=== PATIENT | female | born 1975 | race Caucasian/White ===

== ENCOUNTER → 2017-05-22 14:14 | Outpatient (CLI) | payer OTHER, SELFPAY ==
[2017-05-22 17:25] LABS: Blood Urea Nitrogen 8 mg/dL (7-18); Creatinine,Serum 0.79 mg/dL (0.55-1.02); Estimated Glomerular Filt Rate 79 ml/min (>60); GFR (African American) 96 ML/MIN (>60)
== END ==
PROVIDERS: PCP Family Medicine; Visit Provider Family Medicine
DX: R10.84 Generalized abdominal pain (principal)
CPT/HCPCS: 36415; 82565; 84520

== ENCOUNTER → 2017-05-23 08:50 | Outpatient (CLI) | payer OTHER, SELFPAY ==
--- NOTE | 2017-05-23 08:56 | CT_ITS ---
CT abdomen pelvis w con CLINICAL INDICATION: Abdominal pain with diarrhea, possible diverticulitis ITS.REASON: ABD PAIN,DIARRHEA ORDERING PHYSICIAN: Janet Dai PATIENT AGE: 41 years COMPARISON: 05/26/15 TECHNIQUE: Axial images obtained with sagittal and coronal reformats. PROCEDURE: Oral Contrast: Redicat IV Contrast: 75 mL's of Isovue-370. FINDINGS: No acute finding in the lung bases. Prior cholecystectomy. No focal liver lesion. No biliary dilatation. The spleen, adrenal glands, and pancreas, kidneys, ureters, and urinary bladder have an unremarkable appearance. No obstructing renal or ureteral calculi. No intestinal obstruction or free air. No evidence of appendicitis. There has been a prior hysterectomy. There are scattered diverticula within the descending and sigmoid colon. There is mild thickening of the mid aspect of the sigmoid colon. This is nonspecific. No focal inflamed diverticula are apparent. There is no evidence of abscess or perforation. No abnormal fluid collections are evident within the pelvis. There is a small left ovarian cyst measuring 1.3 cm No acute bony anomalies. IMPRESSION: There is mild thickening of the sigmoid colon within central aspect of the pelvis. This is nonspecific and may be related to nondistention. Mild colitis is also a consideration. The imaging findings are not suggestive of diverticulitis. No focal inflamed diverticula are evident. No abscess or perforation and
--- NOTE | 2017-05-23 09:19 | HMH.ITSHM ---
VICTOZA METRONIDAZOLE CIPRO FARANTONIOGA VIT D 3 METOCLOPRAMIDE OMEPRAZOLE ATORVASTATIN BUSPIRONE CITALOPRAM BUPROPION XL
== END ==
PROVIDERS: PCP Family Medicine; Visit Provider Nurse Practitioner
DX: R19.7 Diarrhea, unspecified (principal); R10.84 Generalized abdominal pain
CPT/HCPCS: 74177; Q9967

== ENCOUNTER → 2017-06-24 12:51 | Outpatient (CLI) | payer OTHER, SELFPAY ==
--- NOTE | 2017-06-24 | US_ITS ---
MM Dig mamm BI DX w/CAD, US breast RT complete Ultrasound left breast complete COMPARISON: 12/23/2016, 11 2 16 INDICATION: Follow-up abnormal mammogram ORDERING PHYSICIAN: Velasquez Arias MD PATIENT AGE: 42 years TECHNIQUE: Standard images performed with bilateral spot compression views and bilateral breast ultrasound FINDINGS: Right mammogram: Average fibroglandular tissue. 5 mm nodular opacity lateral aspect of right breast at 9:00. 5 mm Central opacity right breast appear to compress out as fibroglandular tissue. These areas are probably benign likely representing overlapping fibroglandular tissue as no sonographic adenopathy is were detected.. Right breast ultrasound: No mass or cyst evident. Left mammogram: Scattered nodular opacities are present involving the left breast similar to the previous exam. No malignant appearing masses are apparent. Left breast ultrasound: 5 mm cyst 12:00, 6 mm cyst at 3:00, 8 mm complex cyst at 7:00 near the nipple. This has developed since the previous exam. No suspicious solid lesions evident. IMPRESSION: Bilateral nodular opacities of both breasts probably related to fibrocystic changes BI-RADS Category: 3 Benign Finding Short Term Follow-up RECOMMENDED FOLLOW-UP: 6M - 6 MONTH FOLLOW-UP Recommend bilateral 6 month mammographic and sonographic follow-up (A letter has been sent to the patient regarding results of the study.)
== END ==
PROVIDERS: PCP Family Medicine; Visit Provider Family Medicine
DX: Z12.31 Encounter for screening mammogram for malignant neoplasm of breast (principal)
CPT/HCPCS: 76641; 77066

== ENCOUNTER → 2018-07-16 09:03 | Outpatient (CLI) | payer OTHER, SELFPAY ==
[2018-07-16 09:08] LABS: Adenovirus F 40/41, stool Not Detected (NotDetected); Astrovirus Not Detected (NotDetected); Campylobacter Not Detected (NotDetected); Clostridium Difficile A/B, PCR Not Detected (NotDetected); Cryptosporidium Not Detected (NotDetected); Cyclospora Cayetanesis Not Detected (NotDetected); Entamoeba histolytica Not Detected (NotDetected); Enteroaggregative E coli Not Detected (NotDetected); Enteropathogenic E coli Not Detected (NotDetected); Enterotoxigenic E coli Not Detected (NotDetected); Giardia lamblia Not Detected (NotDetected); Norovirus Not Detected (NotDetected); Plesimonas Shigalloides, PCR Not Detected (NotDetected); Rotavirus A Not Detected (NotDetected); Salmonella, PCR Not Detected (NotDetected); Sapovirus Not Detected (NotDetected); Shiga-like toxin E coli Not Detected (NotDetected); Shigella Enterovasive E coli Not Detected (NotDetected); Vibrio Cholerae Not Detected (NotDetected); Vibrio, PCR Not Detected (NotDetected); Yersinia Entercolitica, PCR Not Detected (NotDetected)
== END ==
PROVIDERS: Visit Provider Family Medicine
DX: R19.7 Diarrhea, unspecified (principal)
CPT/HCPCS: 87507

== ENCOUNTER → 2018-08-07 10:21 | Outpatient (CLI) | payer OTHER, SELFPAY ==
--- NOTE | 2018-08-07 10:25 | MM_ITS ---
MM Dig screening mamm BI w/CAD ORDERING PHYSICIAN : Velasquez Arias MD PATIENT AGE: 43 years GENDER: Female COMPARISON: Bilateral mammogram February 2016, June 2017 ultrasound both breast 06/24/2017 Ultrasound left breast 12/23/2016 & INDICATION: Routine: SCREENING . No hormones no new complaints Family history. Mother breast cancer age 61 postmenopausal. Also maternal and paternal grandmother with breast cancer TECHNIQUE: Standard CC and MLO images were obtained. R2 CAD reviewed. FINDINGS: . Scattered densities throughout both breasts. Cyst and fibrocystic disease have been established on previous ultrasound but there seems to be slight progression of probable scattered small cystic elements particularly throughout right breast.. But warrants ultrasound follow-up. The breasts are of moderate density overall, mammography slightly limited breast this character with scattered nodules-. Ultrasound be useful to compliment mammography in this setting. RIGHT BREAST: Several small nodular densities less than 1 cm throughout the right breast are likely more evident than previous studies. Most likely reflect some progressive cysts but would recommend ultrasound to further evaluate and correlate. . Also suggest spot views when patient returns, to excludeCC, MLO upper outer quadrant; along with a full 90 degree view of right breast LEFT BREAST: Majority the nodular densities at the left breast are stable. Specifically note there are 2 areas at the medial breast which were noted previously and unchanged. Ultrasound last year June 2017 shows scattered cysts. Somewhat intermediate complex cyst density likely reflecting collection of apocrine cyst at 7:00 was noted; and because of this I would suggest a follow-up left breast ultrasound as well when patient returns. 4 mm area towards upper-outer quadrant left breast is likely more generous but has fluctuated in size and most likely cyst or intramammary node. There is labeled X. Suspect we identify a benign cyst or feature here but spot views may be of benefi if not. Mammography of decreased sensitivity in breast of this character with scattered densities Favor of the above findings are most likely all related to fibrocystic disease but will benefit from additional ultrasound workup. IMPRESSION: ......... Scattered nodular densities bilaterally with slight progression right more so than left Scattered cysts seen on previous ultrasound bilateral RIGHT BREAST: Slight progression of scattered densities throughout right breast-most likely cysts as previously established, but would benefit from additional evaluation Specifically noting several small area more evident today throughout superiorly right breast, & towards upper outer quadrant. Recommend additional views Right breast, along with Right breast ultrasound to further evaluate LEFT BREAST: Scattered nodular densities on overall similar to previous studies Would suggest left breast ultrasound follow-up as well in patient returns: . specifically to further evaluate the complex likely cluster collection of apocrine cysts at 6-7:00 position. BI-RADS Category: 0 Need Additional Imaging Evaluation RECOMMENDED FOLLOW-UP: IMM - IMMEDIATE FOLLOW-UP RECOMMENDED Bilateral breast ultrasound Additional diagnostic mammogram views right breast as in text (A letter has been sent to the patient regarding results of the study.)
== END ==
PROVIDERS: PCP Family Medicine; Visit Provider Family Medicine
DX: Z12.31 Encounter for screening mammogram for malignant neoplasm of breast (principal)
CPT/HCPCS: 77067

== ENCOUNTER → 2018-08-26 13:29 | Outpatient (CLI) | payer OTHER, SELFPAY ==
--- NOTE | 2018-08-26 13:39 | MM_ITS ---
MM Dig mamm DX unilat RT CAD, US breast RT complete, US breast LT complete INDICATION: Follow-up abnormal mammogram ORDERING PHYSICIAN: Velasquez Arias MD PATIENT AGE: 43 years COMPARISON: 08/07/2018, 06/24/2017, 02/25/2016 TECHNIQUE: Problem-solving views are performed along with bilateral breast ultrasound FINDINGS: There is present in the inferior aspect of the right breast at the 5:00 region marked skin marker. There is slight diffuse increased density at this region. There are scattered nodular densities once again noted involving the right breast. The major area of concern on the screening mammogram appear to compress out as fibroglandular tissue in the upper aspect of the right breast at the 10:00 region. Evident is similar appearance compared to prior diagnostic study of 06/24/2017. Other smaller nodular densities are not significant changed and are felt to be probably benign. No malignant appearing mass or malignant appearing microcalyx patient. Right breast ultrasound with axilla: And ill-defined hypoechoic area is present at the 5:00 region in the subcutaneous tissues corresponding to the area marked with a skin marker. This is hypoechoic measuring 2 x 1.4 x 0.6 cm. No other abnormalities are demonstrated. Left breast ultrasound: 4 mm cyst is present at 1:00 nipple. A complex 7 mm hypoechoic nodule with internal echoes noted at 7:00 measuring 7 mm. This was present on previous study of 06/24/2017 and is not significantly changed and may represent complex cyst. No other abnormalities are evident. IMPRESSION: Bilateral nodular opacities probably benign. Recommend bilateral 6 month mammographic follow-up Visible and palpable nodule in the 5:00 region right breast shows an area of decreased echogenicity in the subcutaneous region and could be related to underlying inflammation/abscess. Please correlate with direct visualization and clinical findings. Fine-needle aspiration could be performed under sonographic guidance of this area clinically desired. BI-RADS Category: 3 Probably Benign Finding Short Term Follow-up Suggest bilateral 6 month mammographic follow-up. Also recommend correlation with physical exam regarding the nodule at 5:00 in the right breast as described above. Fine-needle aspiration under sonographic guidance could be performed of this lesion if clinically desired (A letter has been sent to the patient regarding results of the study.)
== END ==
PROVIDERS: PCP Family Medicine; Visit Provider Family Medicine
DX: R92.8 Other abnormal and inconclusive findings on diagnostic imaging of breast (principal)
CPT/HCPCS: 76641; 77065

== ENCOUNTER → 2019-03-18 08:28 | Outpatient (CLI) | payer OTHER, SELFPAY ==
--- NOTE | 2019-03-18 08:34 | XR_ITS ---
PROCEDURE: XR CHEST 2V CLINICAL HISTORY: COUGH COMPARISON: CXR1 CHEST-PORTABLE from 05/25/2015 CXR CHEST(2 VIEWS-NOT PORTABLE) from 11/29/2016 CTAC CTA-CHEST from 12/02/2016 CXR CHEST(2 VIEWS-NOT PORTABLE) from 12/04/2016 FINDINGS: Borderline cardiomegaly without failure. The lungs are clear. No acute bony findings. Calcified granuloma is present in the anterior clear space inferiorly The lungs are clear without infiltrates, suspicious nodules, or pleural effusions. No acute bony abnormalities. IMPRESSION: No acute findings. Dictated by: Garret Araya MD 03/18/2019 09:32 Electronically signed by Garret Araya MD in [place] 03/18/2019 09:32
== END ==
PROVIDERS: PCP Family Medicine; Visit Provider Family Medicine
DX: R05 Cough (principal)
CPT/HCPCS: 71046

== ENCOUNTER → 2019-05-19 11:47 | Outpatient (CLI) | payer OTHER, SELFPAY ==
--- NOTE | 2019-05-19 12:03 | XR_ITS ---
PROCEDURE: XR CHEST 2V CLINICAL HISTORY: CHEST PAIN,DIZZINESS Chest pain, dizziness, smoker, COPD COMPARISON: CXR CHEST(2 VIEWS-NOT PORTABLE) from 11/29/2016 CTAC CTA-CHEST from 12/02/2016 CXR CHEST(2 VIEWS-NOT PORTABLE) from 12/04/2016 XR CHEST 2V from 03/18/2019 FINDINGS: The cardiomediastinal silhouette and pulmonary vascularity are within normal limits. The lungs are clear without infiltrates, suspicious nodules, or pleural effusions. No acute bony abnormalities. IMPRESSION: No acute findings. Dictated by: Garret Araya MD 05/19/2019 13:46 Electronically signed by Garret Araya MD in [place] 05/19/2019 13:46
[2019-05-19 12:24] LABS: Basophils # 0.1 K/mm3 (0-0.2); Basophils % 1.1 % (0.1-2.0); Eosinophils # 0.3 K/mm3 (0.0-0.4); Eosinophils % 3.5 % (0.1-12.0); Hematocrit 46.1 % (37.0-47.0); Hemoglobin 15.7 g/dL (12.2-16.2); Lymphocytes # 2.8 K/mm3 (0.7-4.5); Lymphocytes % 34.8 % (10-50); Mean Corpuscular Hemoglobin 31.9 pg (27.0-31.2); Mean Corpuscular Volume 93.9 fl (81-99); Mean Platelet Volume 8.3 fl (7.4-10.4); Monocytes # 0.3 K/mm3 (0.1-1.0); Monocytes % 3.6 % (1.7-9.3); Neutrophils # 4.5 K/mm3 (1.8-7.8); Platelet Count 199 K/mm3 (142-424); Red Blood Count 4.91 M/mm3 (4.20-5.40); Red Cell Distribution Width 13.2 % (11.5-17.5)
[2019-05-19 13:42] LABS: Troponin I < 0.02 ng/ml (0.00-0.06)
[2019-05-19 13:50] LABS: Alanine Aminotransferase 117 U/L (9-52); Albumin Level 3.9 g/dL (3.4-5.0); Albumin/Globulin Ratio 1.1 (1.1-1.8); Alkaline Phosphatase 91 U/L (46-116); Amylase 31 U/L (25-115); Aspartate Amino Transferase 86 U/L (15-37); Bilirubin,Total 0.3 mg/dL (0.2-1.0); Blood Urea Nitrogen 8 mg/dL (7-18); Calcium 8.9 mg/dL (8.5-10.1); Carbon Dioxide 29 mmol/L (21.0-32.0); Chloride 104 mmol/L (98-107); Chol/HDL Ratio 9.7 (1-3.5); Cholesterol 290 mg/dL (140-200); Creatinine,Serum 0.72 mg/dL (0.55-1.02); Estimated Glomerular Filt Rate 88 ml/min (>60); GFR (African American) 106 ML/MIN (>60); Globulin 3.5 gm/dl (1.3-3.2); Glucose 224 mg/dL (74-106); HDL Cholesterol 30 mg/dL (29-89); Lipase 465 u/L (73-393); Sodium 141 mmol/L (137-145); Total Protein,Serum 7.4 g/dL (6.4-8.2)
[2019-05-19 13:54] LABS: Triglycerides 467 mg/dL (30-200)
== END ==
PROVIDERS: Visit Provider Nurse Practitioner
DX: R07.9 Chest pain, unspecified (principal); R42 Dizziness and giddiness; R10.13 Epigastric pain
CPT/HCPCS: 36415; 71046; 80053; 80061; 82150; 83690; 83880; 84484; 85025

== ENCOUNTER → 2019-05-26 14:19 | Outpatient (CLI) | payer OTHER, SELFPAY ==
--- NOTE | 2019-05-26 14:23 | CA_ITS ---
APPROVED REPORT Staff Trainer: CT Laterality: Bilateral Study Quality: Adequate Indications: Dizziness and Vertigo Risk Factors Hypertension: Hyperlipidemia Diabetes Smoking Doppler Spectral Velocity Analysis ECA (R) 107.00/ cm/s ECA (L) 131.00/ cm/s dICA (R) 91.20/38.00 cm/s dICA (L) 73.70/32.90 cm/s Blair (R) 96.00/37.50 cm/s Blair (L) 81.00/30.40 cm/s pICA (R) 82.10/34.50 cm/s pICA (L) 77.70/27.90 cm/s dCCA (R) 103.00/29.10 cm/s dCCA (L) 86.90/29.00 cm/s pCCA (R) 123.00/28.30 cm/s pCCA (L) 98.70/24.80 cm/s Vert (R) 39.90/ cm/s Vert (L) 50.00/ cm/s ICA/CCA 0.93 ICA/CCA 0.93 Findings Duplex evaluation demonstrates stenosis of the right proximal internal carotid artery <20%. Duplex evaluation demonstrates stenosis of the left proximal internal carotid artery <20%. Duplex evaluation demonstrates antegrade flow of the bilateral Vertebral Arteries. Thyroid cyst noted in right thyroid. Conclusion Duplex evaluation demonstrates stenosis of the right proximal internal carotid artery <20%. Duplex evaluation demonstrates stenosis of the left proximal internal carotid artery <20%. Duplex evaluation demonstrates antegrade flow of the bilateral Vertebral Arteries. Electronically signed by : Papa Martin, 05/27/2019 12:20:23
== END ==
LOC: RT 14:20
PROVIDERS: PCP Nurse Practitioner; Visit Provider Nurse Practitioner
DX: R42 Dizziness and giddiness (principal)
CPT/HCPCS: 93880

== ENCOUNTER → 2019-06-11 15:24 | Outpatient (CLI) | payer OTHER, SELFPAY ==
--- NOTE | 2019-06-11 15:31 | US_ITS ---
PROCEDURE: US THYROID CLINICAL INDICATION: THYROID CYST COMPARISON: No exams were available for comparison FINDINGS: Right lobe: 3.1 x 0.8 x 1.2 cm. Left lobe: 3.2 x 1.4 x 0.9 cm. Isthmus: Unremarkable Additional findings: No discrete nodule evident. There is slight heterogeneous echogenicity within the thyroid gland IMPRESSION: Unremarkable thyroid ultrasound. No nodule or cyst Dictated by: Garret Araya MD 06/11/2019 16:34 Electronically signed by Garret Araya MD in [place] 06/11/2019 16:34
== END ==
LOC: RAD 15:25
PROVIDERS: PCP Nurse Practitioner; Visit Provider Nurse Practitioner
DX: E04.1 Nontoxic single thyroid nodule (principal)
CPT/HCPCS: 76536

== ENCOUNTER → 2019-08-12 13:31 | Outpatient (CLI) | payer OTHER, SELFPAY ==
[2019-08-12 13:55] LABS: Blood Urea Nitrogen 10 mg/dl (7-17); Estimated Glomerular Filt Rate 108 ml/min (>60); GFR (African American) 130 ML/MIN (>60)
--- NOTE | 2019-08-12 14:04 | MR_ITS ---
PROCEDURE: MR HEAD/BRAIN WO/W CON CLINICAL INDICATION: BLURRY VISION,BILATERAL, CHRONIC MIGRAINE W/OUT AURA COMPARISON: No exams were available for comparison TECHNIQUE: Routine multiplanar multi echo sequences are performed without and with gadolinium enhancement. FINDINGS: No midline shift, mass effect, intracranial hemorrhage, or hydrocephalus is evident. No evidence of acute infarction. The cerebellopontine angles, cerebellum, and brainstem are unremarkable. Incidental perivascular dilated spaces noted in the basal ganglia. No enhancing lesions are evident. There are scattered periventricular and subcortical T2 white matter hyperintensities which are most prominent at the parietal occipital temporal junction. These do not demonstrate contrast enhancement nor do they show restricted diffusion. The pituitary, optic chiasm, corpus callosum, and craniocervical junction have an unremarkable appearance. There is mild mucosal thickening of the ethmoid sinuses. No sinus air-fluid level. No mastoid effusion. IMPRESSION: 1. There are scattered periventricular and subcortical T2 white matter hyperintensities most prominent at the temporal parietal occipital junction on both sides left greater than right. These are nonspecific. Differential diagnosis would include demyelinating process/multiple sclerosis versus ischemic gliotic foci from microvascular disease or sequela from migraine headache. There is somewhat more prominent than 1 would expect in this age group for ischemic gliotic foci. Are there vascular disease risk factors such as hypertension diabetes or smoking history? 2. Otherwise negative MRI of the brain without and with contrast. No enhancing lesions evident. Dictated by: Garret Araya MD 08/12/2019 16:45 Electronically signed by Garret Araya MD in [place] 08/12/2019 16:45
== END ==
LOC: RAD 13:32
PROVIDERS: Visit Provider Nurse Practitioner
DX: G43.709 Chronic migraine without aura, not intractable, without status migrainosus (principal); H53.8 Other visual disturbances
CPT/HCPCS: 36415; 70553; 82565; 84520; A9576

== ENCOUNTER → 2019-09-22 08:04 | Outpatient (CLI) | payer OTHER, SELFPAY ==
--- NOTE | 2019-09-22 08:15 | XR_ITS ---
PROCEDURE: XR CHEST PORTABLE CLINICAL HISTORY: COVID TEST Cough and congestion COMPARISON: CTAC CTA-CHEST from 12/02/2016 CXR CHEST(2 VIEWS-NOT PORTABLE) from 12/04/2016 XR CHEST 2V from 03/18/2019 XR CHEST 2V from 05/19/2019 FINDINGS: The cardiomediastinal silhouette and pulmonary vascularity are within normal limits. The lungs are clear without infiltrates, suspicious nodules, or pleural effusions. No acute bony abnormalities. IMPRESSION: No acute findings. Dictated by: Garret Araya MD 09/22/2019 09:10 Electronically signed by Garret Araya MD in [place] 09/22/2019 09:10
[2019-09-23 13:34] LABS: Covid-19 Nasal PCR Sendout Lex NOT DETECTED
== END ==
PROVIDERS: PCP Family Medicine; Visit Provider Family Medicine
DX: Z03.818 Encounter for observation for suspected exposure to other biological agents ruled out (principal)
CPT/HCPCS: 71045; U0004

== ENCOUNTER → 2020-03-03 09:38 | Outpatient (CLI) | payer OTHER, SELFPAY | PROVIDERS: PCP Family Medicine; Visit Provider Family Medicine | DX: Z03.818 Encounter for observation for suspected exposure to other biological agents ruled out (principal) | CPT/HCPCS: U0003 ==

== ENCOUNTER → 2020-04-25 10:07 | Outpatient (CLI) | payer OTHER, SELFPAY | PROVIDERS: PCP Family Medicine; Visit Provider Family Medicine | DX: Z20.822 Contact with and (suspected) exposure to COVID-19 (principal) | CPT/HCPCS: U0003 ==